=== PATIENT | male | born 2000 | race Caucasian/White ===

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

== ENCOUNTER 2018-03-10 17:23 | Emergency (ER) | payer SELFPAY ==
[~2018-03-10] VITALS: Ht 172.7 cm; Wt 90.7 kg
[2018-03-10 17:24] VITALS: BP 127/80
[2018-03-10] MEDS ORDERED: AMOXICILLIN500 M3 PO (17:46)
== END 2018-03-10 17:49 | disposition home or self-care (01) ==
LOC: ED 17:23
DX: K02.9 Dental caries, unspecified (principal)

== ENCOUNTER 2020-12-18 19:42 | Emergency (ER) | payer OTHER ==
[~2020-12-18] VITALS: Ht 172.7 cm; Wt 104.3 kg
[~2020-12-18 19:42] MED LIST changes: +AMOXICILLIN500 M3 PO; +PREDNISONE50 MG PO; +ROBITUSSIN DM 105 ML PO; +ZYRTEC10 M3 PO
[2020-12-18 19:56] VITALS: BP 135/74
[2020-12-18 22:38] LABS: BILIRUBIN Negative (Negative); BLOOD Negative (Negative); CLARITY Clear (Clear); COLOR Yellow (Yellow); GLUCOSE Negative (Negative); KETONE Negative (Negative); LEUKO ESTERASE Negative (Negative); NITRITE Negative (Negative); SPECIFIC GRAVITY 1.015 (1.001-1.030)
[2020-12-18] MEDS ORDERED: CYCLOBENZAPRINE10 MG PO (22:41)
[2020-12-18] MEDS ORDERED: KETOROLAC10 MG PO (22:41)
[2020-12-18 22:58] LABS: WBC 0-2 wbc/hpf (0-5)
== END 2020-12-18 23:22 | disposition home or self-care (01) ==
LOC: ED 19:42
PROVIDERS: Emergency Medicine
DX: G58.8 Other specified mononeuropathies (principal); M54.5 Low back pain; Z79.899 Other long term (current) drug therapy